=== PATIENT | female | born 1970 | race Hispanic/Latino ===

== ENCOUNTER 2024-12-06 15:03 | Emergency (ER) | payer OTHER, SELFPAY ==
[2024-12-06 15:08] VITALS: BP 166/90
[2024-12-06 15:28] LABS: % Basophils 0.3 % (0-2); % Immature Granulocytes 0.7 % (0-0.5); % Lymphocytes 8.4 % (20.5-51.1); % Monocytes 7.7 % (1.7-9.3); % Neutrophils 82.9 % (42.2-75.2); Absolute Immature Granulocytes 0.1 10^3/uL (0-0.05); Absolute Lymphocytes 0.7 10^3/uL (1.2-3.4); Absolute Monocytes 0.7 10^3/uL (0.1-0.6); Absolute Neutrophils 7.3 10^3/uL (1.4-6.5); Hematocrit 46.2 % (37.0-47.0); Hemoglobin 15.1 g/dL (12.0-16.0); Mean Corp Hgb Conc. 32.7 g/dL (33.0-37.0); Mean Corpuscular Hgb 30.1 pg (27.0-31.0); Mean Platelet Volume 11.3 fL (7.4-10.4); Nucleated Red Blood Cells % 0 %; Platelet Count 189 10^3/uL (130-400); Red Blood Cell Count 5.02 10^6/uL (4.20-5.40); Red Cell Dist. Width 14.6 % (11.5-14.5); White Blood Cell Count 8.8 10^3/uL (4.8-10.8)
[2024-12-06 15:41] LABS: HCG, Serum Qualitative Screen Negative
[2024-12-06 15:53] LABS: ALT (SGPT) 43 U/L (0-35); AST (SGOT) 24 U/L (14-36); Albumin 4.2 g/dl (3.5-5.0); Alkaline Phosphatase 98 U/L (38-126); Blood Urea Nitrogen 8 mg/dl (7-17); Calcium 9.3 mg/dl (8.4-10.2); Carbon Dioxide 21 mmol/L (22-30); Chloride 106 mmol/L (98-107); Glucose 185 mg/dl (70-99); Lipase 112 U/L (23-300); Potassium 3.9 mmol/L (3.5-5.1); Sodium 138 mmol/L (135-145); Total Protein 6.9 g/dl (6.3-8.2); eGFR > 60.00
[2024-12-06 17:17] VITALS: BP 122/68
[2024-12-06 18:00] VITALS: BP 127/74
--- NOTE | 2024-12-06 18:08 | ED.GENMED ---
History of Present Illness
General
Chief Complaint: Abdominal Symptoms
Source: patient
Exam Limitations: none
Time Seen by Provider: 12/06/24 17:27
Nursing documentation reviewed up to this point in time: agreed with
History of Present Illness
History of Present Illness:
54-year-old female history of tubal ligation, 2 to 3 days of abdominal pain cramping loose stools with blood mixed in, after eating a fish dinner family had the same food with no symptoms no foreign travel no recent antibiotic use nondrinker
non-smoker
Past History
Past History
ED Past Surgical History: Gynecological
Social History
Tobacco: Non-smoker
Alcohol: None
Drug: None
Personal:
Living: with family
Employment: Employed
Review of Systems
Review of Systems
Constitutional: Reports fever, fatigue and chills
Respiratory: Reports no symptoms
ABD/GI: Reports abdominal pain, nausea, diarrhea and bloody stools
: Reports no symptoms
Neurological: Reports weakness
Phy Exam
Physical Exam
Physical Exam:
Physical Exam
General: 54 female mild distress
Neck: Dry lips
Heart: Tachycardia
Lungs: no acute respiratory distress. clear bilaterally
Abdomen: Soft mild diffuse tender
Neuro: alert and oriented. no focal neurological deficits
Skin: no rash
Psychiatric: well kept. interactive and cooperative
Extremities: no edema.
Course
Orders/Labs/Results
Orders:
Orders
12/06/24 15:09
Test Result ONCE
12/06/24 15:21
Complete Blood Count/With Diff Urgent
Comprehensive Metabolic Panel Urgent
HCG, Serum Qualitative Screen Urgent
Lipase Urgent
12/06/24 17:59
STOOL [C difficile Antigen & Toxins] Urgent
BIJU Source: Feces/Stool
Specimen Description:
Stool Culture Urgent
BIJU Source: Feces/Stool
Specimen Description:
0.9% Sodium Chloride 1000 ml [Nss] 1,000 ml IV BOLUS
Morphine Sulfate 4 mg IV NOW STA
Ondansetron Injectable [Zofran] 4 mg IV NOW STA
12/06/24 18:00
CT Abd/pelvis W Iv Cont Urgent
Comment:
Reason For Exam: abd pain fever
12/06/24 21:35
LevoFLOXacin [Levaquin] 500 mg PO NOW STA
MetroNIDAZOLE [Flagyl] 500 mg PO NOW STA
Abnormal Lab Results
12/06/24
15:21
MCHC 32.7 L g/dL
(33.0-37.0)
RDW 14.6 H %
(11.5-14.5)
MPV 11.3 H fL
(7.4-10.4)
Abs Immat Gran (auto) 0.1 H 10^3/uL
(0-0.05)
Absolute Neuts (auto) 7.3 H 10^3/uL
(1.4-6.5)
Absolute Lymphs (auto) 0.7 L 10^3/uL
(1.2-3.4)
Absolute Monos (auto) 0.7 H 10^3/uL
(0.1-0.6)
Immature Gran % 0.7 H %
(0-0.5)
Neutrophils % 82.9 H %
(42.2-75.2)
Lymphocytes % 8.4 L %
(20.5-51.1)
Carbon Dioxide 21 L mmol/L
(22-30)
Glucose 185 H mg/dl
(70-99)
ALT 43 H U/L
(0-35)
12/06/24 15:21
12/06/24 15:21
Vital Signs
Initial and Last Documented VS:
Initial Vital Signs
Temp Pulse Resp BP Pulse Ox
98.6 F 124 18 166/90 98
12/06/24 15:08 12/06/24 15:08 12/06/24 15:08 12/06/24 15:08 12/06/24 15:08
Last Documented Vital Signs
Temp Pulse Resp BP Pulse Ox
99.2 F 103 15 117/60 96
12/06/24 17:19 12/06/24 19:45 12/06/24 19:45 12/06/24 19:42 12/06/24 19:45
MDM/Problems Addressed
Differential Diagnosis Includes:
Enteritis colitis diverticulitis doubt biliary colic or appendicitis
MDM/Problems Addressed:
Diarrhea bloody stools after eating fish
*Radiology
Radiology exam reviewed: radiology read reviewed
*Pulse Oximetry
Patient hypoxic: no
Comment: 99
*Critical Care Note
Total Time (30-74mins, 75-104mins- exclusive of procedures): Not Applicable
Update Note
Update Note:
Will start supportive care IV fluids antiemetics analgesics check stool cultures CT scan consideration for empiric antibiotics
Update labs noted CT noted will give a short course of Levaquin Flagyl for infectious colitis
ED Attending Note
-
Portions of this chart may have been created with voice recognition software.� Occasional wrong word or��sound alike� substitutions may have occurred due to the inherent limitations of voice recognition software.
Discharge Plan
Departure
Patient Disposition: Home (Routine Discharge)
Date of Disposition: 12/06/24
Time of Disposition: 21:36
Patient with high blood pressure during this ER visit?: No
Condition: Good
Discharge Problem:
Colitis
Instructions: Dehydration, Adult (DC), [place] Diet, Diarrhea in teens and adults, Colitis - Discharge instructions
Prescriptions:
New
levofloxacin 500 mg tablet
500 mg PO DAILY 5 Days Qty: 5 0RF
metronidazole 250 mg tablet
250 mg PO Q8H Qty: 12 0RF
Referrals:
Ozzie Barrett MD [Family Provider, Family Practice] - Follow up in 5-7 days
Activity Restrictions/Additional Instructions:
Treat plenty of fluids, antibiotics as prescribed, Tylenol as needed for pain
Return to the ER for worsening symptoms
Interventions
Interventions:
*Risk Screen - Suicide Last Done: 12/06/24 15:09
*General Assessment Last Done: 12/06/24 15:09
*Neglect/Abuse Screening Last Done: 12/06/24 15:09
*ED- Fall Risk Assessment Last Done: 12/06/24 18:24
*ED COVID-19 Vaccine History Last Done: 12/06/24 18:24
FE-Snwuwr-Ewochlgtwg Assessment Last Done: 12/06/24 18:24
Discharge Date and Time
Print Language: BENGALI
[2024-12-06 18:24] VITALS: BMI 40.9
[2024-12-06] MEDS: ZOFRAN 4 MG IV (18:27)
[2024-12-06] MEDS: MORPHINE SULFATE 4 MG IV (18:27)
[2024-12-06] MEDS: NSS 1000 IV (18:28)
[2024-12-06 19:42] VITALS: BP 117/60
[2024-12-06] MEDS: FLAGYL 500 MG PO (21:48)
[2024-12-06] MEDS: LEVAQUIN 500 MG PO (21:49)
== END 2024-12-06 22:02 | disposition home or self-care (01) ==
LOC: EMR 15:03
PROVIDERS: Emergency Medicine; EMERGENCY PHYSICIAN Emergency Medicine; FAMILY PHYSICIAN Family Medicine
DX: K52.9 Noninfective gastroenteritis and colitis, unspecified (principal)
CPT/HCPCS: 99285; 96374; 96375; 96361; 74177; 80053; 83690; 84703; 85025; Q9967